=== PATIENT | female | born 1970 | race African-American/Black ===

== ENCOUNTER 2022-10-25 14:57 | Emergency (ER) | payer MEDICAID, SELFPAY ==
--- NOTE | ~2022-10-25 | XR_ITS ---
XR chest 2V DATE: 10/25/2022 18:14 INDICATION: Chest pain, left chest tightness for one day TECHNIQUE: PA and lateral views COMPARISON: None FINDINGS: Normal heart size. No hilar or mediastinal enlargement. No pulmonary infiltrate or consolid ation, pleural effusion or pulmonary vascular congestion or pneumothorax. Included skeletal structure s appear normal. IMPRESSION: Negative Reviewed, dictated and finalized at location A. IMPRESSION: Negative
[2022-10-25 15:39] VITALS: BP 175/102; PULSE 64; RESP 18; TEMP 37; O2SAT 98
--- NOTE | 2022-10-25 16:54 | ECG_ITS ---
Measurements Intervals [place] Rate: 60 P: 68 MT: 146 QRS: 47 QRSD: 83 T: 58 QT: 409 QTc: 412 Interpretive Statements SINUS RHYTHM NONSPECIFIC ST ELEVATION IN DIFFUSE LEADS BASELINE ARTIFACT- I, II, III, AVR, AVL BORDERLINE ECG NO PREVIOUS ECG AVAILABLE FOR COMPARISON Electronically Signed On 10-25-2022 20:40:16 CDT by Charles Riley D.O.
--- NOTE | 2022-10-25 16:56 | ED.GENADULT ---
HPI - General Adult General Chief complaint: Abdominal Pain Stated complaint: lower abd pain Time Seen by Provider: 10/25/22 16:08 History of Present Illness HPI narrative: This is a 52-year-old female who denies significant past medical history, presented to the emergency department complaining of intermittent abdominal cramping (4/10) for the past 3 days and tightness in the left chest in the past day, now resolved. She states her symptoms began after drinking an increased amount of sodas from her baseline. The sensation in the chest was rated 4/10 did not radiate, was not associated with nausea vomiting and has since resolved Related Data Allergies Allergy/AdvReac Type Severity Reaction Status Date / Time No Known Allergies Allergy Verified 10/25/22 14:58 Review of Systems Review of Systems: CONSTITUTIONAL: Denies fever, chills, or sweats. CARDIOVASCULAR: Left-sided chest tightness, now resolved denies palpitations, or edema. RESPIRATORY: Denies cough or dyspnea. GASTROINTESTINAL: Cramping abdominal pain denies nausea, vomiting, or diarrhea. GENITOURINARY: Denies dysuria or hematuria. SKIN: Denies rash or itching. MUSCULOSKELETAL: Denies back pain, joint pain, or myalgia. NEUROLOGIC: Denies headache, numbness, dizziness, or weakness. PSYCHIATRIC: Denies anxiety or depression. Exam Narrative: GENERAL: Well-developed, well-nourished, and in no acute distress. HEAD: Normocephalic, atraumatic. EYES: PERRLA and EOMI. ENT: Nares clear, no rhinorrhea or epistaxis. Mucous membranes moist. Oropharynx without tonsillar hypertrophy exudate or other lesions CHEST: Clear to auscultation. No respiratory distress. No wheezes rales or rhonchi. Nontender to palpation over the anterior chest. HEART: Regular rate and rhythm. No murmur heard. Normal peripheral pulses. ABDOMEN: Soft, nontender, nondistended, normal active bowel sounds. EXTREMITIES: Normal range of motion. No edema. SKIN: Warm, dry, no rash. NEURO: No focal deficits. Alert and oriented x3. PSYCH: Normal mood and affect. Course Course Emergency Course: 19:00 - CBC unremarkable. Chemistries demonstrate slightly elevated carbon dioxide of 31 and marginally elevated AST and ALT but otherwise unremarkable. Troponin and EKG negative. Chest x-ray not concerning for acute cardiopulmonary process. HEART score 1. I do not suspect ACS. Discussed findings and recommendations for primary care follow-up. Discussed return and emergency precautions including signs/symptoms of ACS, acute abdomen, and respiratory distress. The patient voiced understanding and is comfortable with the plan. All questions answered to her satisfaction. Vital Signs Vital signs: Vital Signs Temperature 98.6 F 10/25/22 15:39 Pulse Rate 64 10/25/22 15:39 Respiratory Rate 18 10/25/22 15:39 Blood Pressure 175/102 H 10/25/22 15:39 Pulse Oximetry 98 10/25/22 15:39 Temperature 98.6 F 10/25/22 15:39 Pulse Rate 64 10/25/22 15:39 Respiratory Rate 18 10/25/22 15:39 Blood Pressure 175/102 H 10/25/22 15:39 Pulse Oximetry 98 10/25/22 15:39 Medical Decision Making MDM Narrative Medical decision making narrative: Plan: Labs, imaging, EKG, troponin, reassess Differential Diagnosis Differential Diagnosis: ACS, gastroenteritis, metabolic abnormality, other Vital Signs Vital Signs: Vital Signs Temperature 98.6 F 10/25/22 15:39 Pulse Rate 64 10/25/22 15:39 Respiratory Rate 18 10/25/22 15:39 Blood Pressure 175/102 H 10/25/22 15:39 Pulse Oximetry 98 10/25/22 15:39 Temperature 98.6 F 10/25/22 15:39 Pulse Rate 64 10/25/22 15:39 Respiratory Rate 18 10/25/22 15:39 Blood Pressure 175/102 H 10/25/22 15:39 Pulse Oximetry 98 10/25/22 15:39 Lab Data 10/25/22 17:52 10/25/22 17:52 Labs: Lab Results 10/25/22 10/25/22 Range/Units 17:52 17:52 WBC 7.1 (4.5-10.0) K/mm3 RBC 3.83 L (4.2-5.4) M/mm3 Hgb 12
--- NOTE | 2022-10-25 17:39 | PC.NURSE ---
UNABLE TO OBTAIN IV ACCESS.
[2022-10-25 17:56] LABS: Basophils Percent Auto 0.6 % (0.2-1.2); Eosinophils Absolute Auto 0.5 K/mm3 (0-0.3); Eosinophils Percent Auto 6.8 % (0-4.4); Hematocrit 38.8 % (37.0-47.0); Hemoglobin 12.6 g/dL (12.0-15.0); Immature Granulocyte Absolute 0.01 K/mm3 (0.00-0.031); Immature Granulocyte Percent A 0.1 % (0-0.5); Lymphocytes Absolute Auto 3.31 K/mm3 (0.9-3.2); Lymphocytes Percent Auto 46.9 % (18.3-44.2); Mean Corpuscular HGB Conc 32.5 g/dl (32-36); Mean Corpuscular Hemoglobin 32.9 pg (26-34); Mean Corpuscular Volume 101.3 fl (80-100); Mean Platelet Volume 9.9 fl (7.4-10.4); Monocytes Absolute Auto 0.5 K/mm3 (0.1-0.6); Monocytes Percent Auto 6.4 % (2.6-8.5); Neutrophils Absolute Auto 2.8 K/mm3 (1.3-6.7); Neutrophils Percent Auto 39.2 % (45.5-73.1); Platelet Count Result 359 k/mm3 (150-375); Red Blood Count 3.83 M/mm3 (4.2-5.4); Red Cell Distribution Width 11.9 % (11.5-14.5); White Blood Count 7.1 K/mm3 (4.5-10.0)
[2022-10-25 18:06] LABS: Alanine Aminotransferase 83 U/L (6-35); Alkaline Phosphatase 483 U/L (38-126); Anion Gap 3 mmol/L (8-16); Aspartate Amino Transferase 53 U/L (14-36); Bilirubin,Total 0.5 mg/dL (0.2-1.3); Blood Urea Nitrogen 13 mg/dL (7-17); Calcium 8.7 mg/dL (8.4-10.2); Carbon Dioxide 31 mmol/L (22-30); Chloride 107 mmol/L (98-107); Estimated CRCL calculation 98 ml/min; Estimated Glomerular Filt Rate > 60; Glucose 80 mg/dL (65-110); Sodium 141 mmol/L (137-145)
[2022-10-25 18:17] LABS: Troponin I < 0.012 ng/mL (0.000-0.034)
== END 2022-10-25 19:16 | disposition home or self-care (01) ==
PROVIDERS: Emergency Provider Preventive Medicine Aerospace Medicine
DX: R10.9 Unspecified abdominal pain (principal); R07.89 Other chest pain
CPT/HCPCS: 36415; 71046; 80053; 84484; 85025; 93005; 99284